=== PATIENT | female | born 2000 | race Caucasian/White ===

== ENCOUNTER 2022-06-30 20:03 | Outpatient (CLI) | payer OTHER ==
--- NOTE | 2022-07-01 17:47 | Ultrasound Report ---
PROCEDURE: OB F/U or Repeat INDICATIONS: CHRONIC HTN OUTSIDE/PRIOR DATING DATA: Last menstrual period (LMP): 11/04/2021. LMP-based estimated date of delivery (KAUR): 08/11/2022. First dating scan (date and location): 03/26/2022. Estimated date of delivery (KAUR) from first dating scan: 08/09/2022. The below data below was generated using the ultrasound KAUR of 08/09/2022 TECHNIQUE: Real-time scanning was performed of the fetus, with image documentation and biometric measurements. COMPARISON: Outside report 03/06/2022 FINDINGS: General: A single living intrauterine gestation is present. Presentation: Vertex Placenta: Placental position is anterior, without previa. Amniotic fluid index: 19.5 cm, within normal limits for gestational age. heart rate: 135 beats per minute. Maternal cervical canal: Not well seen biometrics: Biparietal diameter: 8.6 cm 34 weeks 5 days Head circumference: 31.8 cm 35 weeks 6 days Abdominal circumference: 30.9 cm 34 weeks 6 days Femur length: 6.3 cm 32 weeks 4 days Estimated gestational age from initial scan: 34 weeks 2 days Composite gestational age from present scan: 34 weeks 4 days Estimated weight and percentile: 2397 g 45th percentile Measurement variability in biometric dating: +/- 10 days from 12-20 weeks gestation, +/- 2 weeks from 20-30 weeks gestation, +/- 3 weeks at 30 weeks gestation or more. Other: Both feet are identified, noting limited evaluation on the left IMPRESSION: Single live intrauterine with ultrasound gestational age today of 34 weeks 4 days. Normal right foot. Limited evaluation of left foot. Reviewed by: Candace Jasmine MD on 07/01/2022 5:45 PM PST Approved by: Candace Jasmine MD on 07/01/2022 5:45 PM PST Station ID: [id number]
== END 2022-06-30 20:04 | disposition home or self-care (01) ==
LOC: DI 20:03
PROVIDERS: ATTEND Family Medicine
DX: O10.913 Unspecified pre-existing hypertension complicating pregnancy, third trimester (principal); Z3A.34 34 weeks gestation of pregnancy